=== PATIENT | female | born 1955 | race Caucasian/White ===

== ENCOUNTER 2018-10-22 07:29 | Day surgery (SDC) | payer OTHER ==
[2018-10-22] MEDS ORDERED: FENTAnyl 50 MCG/ML VIAL (09:18)
[2018-10-22] MEDS ORDERED: PROPOFOL 20 ML (09:18)
== END 2018-10-22 10:21 | disposition home or self-care (01) ==
LOC: GIL 07:29
DX: Z12.11 Encounter for screening for malignant neoplasm of colon (principal); K64.8 Other hemorrhoids; D12.5 Benign neoplasm of sigmoid colon
CPT/HCPCS: 45380; 88305